=== PATIENT | male | born 1975 | race African-American/Black ===

== ENCOUNTER 2024-06-18 09:46 | Emergency (ER) | payer OTHER ==
[~2024-06-18] VITALS: Ht 167.6 cm; Wt 69.0 kg
[2024-06-18] VITALS (15 sets, daily range): BP systolic 126–157; BP diastolic 87–112
[2024-06-18] MEDS ORDERED: SODIUM CHLORIDE 0.9% 1,000 ML IV ONE (10:25)
[2024-06-18 10:46] LABS: BASO% 0.6 % (0-3); EOS% 3.9 % (0-8); HEMATOCRIT 28.2 % (39.0-50.0); HEMOGLOBIN 7.9 g/dl (14.0-18.0); IMMATURE GRANULOCYTES 0.3 % (0.0-5.0); LYMPH% 30.8 % (15-41); MEAN CELL VOLUME 62.4 fL CALC (80.0-100.0); MEAN CORPUSCULAR HGB 17.5 pG CALC (26.0-32.0); MONO% 6.6 % (2-13); NEUT% 57.8 % (42-76); RED BLOOD COUNT 4.52 mill/uL (4.70-6.10); RED CELL DISTRI WIDTH 24.5 % (11.5-15.5)
[2024-06-18 11:03] LABS: ALBUMIN 4.6 g/dL (3.2-5.0); ALKALINE PHOSPHATASE 70 u/l (38-126); ANION GAP 16 (6-22 (CALC)); BILIRUBIN, TOTAL 0.5 mg/dL (0.2-1.3); BUN 13 mg/dL (9-20); BUN/CREATININE RATIO 13 (12-20 (CALC)); CARBON DIOXIDE 29 mmol/l (22-30); CHLORIDE 104 mmol/l (95-108); ESTIMATED GFR 93 ML/MIN (>=90 (CALC)); ETHYL ALCOHOL 0 mg/dl (0-30); LIPASE 35 u/l (23-300); POTASSIUM 4.6 mmol/l (3.5-5.1); SGOT/AST 23 u/l (17-59); SODIUM 144 mmol/l (137-146); TOTAL PROTEIN 8.5 g/dL (6.3-8.2)
[2024-06-18 11:06] LABS: PROTHROMBIN TIME 11.2 SECONDS (9.0-12.5)
[2024-06-18 13:40] LABS: URINE BILIRUBIN - DIPSTICK Negative (NEGATIVE); URINE BLOOD DIPSTICK Negative (NEGATIVE); URINE GLUCOSE - DIPSTICK Negative (NEGATIVE); URINE KETONE Negative (NEGATIVE); URINE LEUK ESTERASE Negative (NEGATIVE); URINE NITRITE - DIPSTICK Negative (Negative); URINE PROTEIN - DIPSTICK Negative (NEG-TRACE); URINE SPECIFIC GRAVITY >=1.030; URINE UROBILINOGEN - DIPSTICK 0.2 E.U./dL (0.2)
[2024-06-18 13:45] LABS: URINE COLOR Yellow
[2024-06-18 15:25] LABS: BASO% 1.1 % (0-3); EOS% 4.2 % (0-8); HEMATOCRIT 23.6 % (39.0-50.0); IMMATURE GRANULOCYTES 0.3 % (0.0-5.0); LYMPH% 32.1 % (15-41); MEAN CELL VOLUME 62.1 fL CALC (80.0-100.0); MEAN CORPUSCULAR HGB 17.6 pG CALC (26.0-32.0); MEAN CORPUSCULAR HGB CONC 28.4 g/dL CAL (32.0-36.0); MONO% 8.6 % (2-13); NEUT# 3.86 thou/uL (1.82-7.42); NEUT% 53.7 % (42-76); RED BLOOD COUNT 3.8 mill/uL (4.70-6.10); RED CELL DISTRI WIDTH 24.2 % (11.5-15.5)
[2024-06-18 15:34] LABS: HEMOGLOBIN 6.7 g/dl (14.0-18.0)
== END 2024-06-18 17:16 | DRG 379 ==
LOC: ED 09:46
PROVIDERS: Emergency Medicine
PROC: 02HV33Z Insertion of Infusion Device into Superior Vena Cava, Percutaneous Approach (ICD-10-PCS; principal; 2024-06-18)
PROC: B518ZZA Fluoroscopy of Superior Vena Cava, Guidance (ICD-10-PCS; 2024-06-18)
DX: K92.2 Gastrointestinal hemorrhage, unspecified (principal); D64.9 Anemia, unspecified
CPT/HCPCS: Q9967